=== PATIENT | male | born 1995 | race African-American/Black ===

== ENCOUNTER 2019-09-14 16:17 | Emergency (ER) | payer MEDICAID ==
[~2019-09-14] VITALS: Ht 175.3 cm; Wt 64.0 kg
[2019-09-14] MEDS ORDERED: DARU1TAB PO (16:44)
[2019-09-14] MEDS ORDERED: [UNRECOGNIZED DRUG - OTHER] (16:44)
[2019-09-14 18:00] LABS: CLARITY URINE CLEAR (CLEAR); COLOR URINE YELLOW (YELLOW); KETONES URINE NEGATIVE (NEGATIVE); LEUKOCYTE ESTERASE URINE NEGATIVE (NEGATIVE); NITRITE URINE NEGATIVE (NEGATIVE); OCCULT BLOOD URINE NEGATIVE (NEGATIVE); PROTEIN URINE NEGATIVE (NEGATIVE); UROBILINOGEN URINE 0.2 E.U./dL (0.2-1.0)
[2019-09-14 18:11] LABS: *AMPHETAMINES SCREEN URINE PRESUMTIVE POSITIVE (NEGATIVE); *BARBITURATES SCREEN URINE NEGATIVE (NEGATIVE); *BENZODIAZEPINES SCREEN URINE NEGATIVE (NEGATIVE); *COCAINE SCREEN URINE NEGATIVE (NEGATIVE); METHADONE URINE SCREEN NEGATIVE (NEGATIVE); OPIATES URINE SCREEN NEGATIVE (NEGATIVE)
[2019-09-14 18:12] LABS: CANNABINOID URINE SCREEN NEGATIVE (NEGATIVE); PHENCYCLIDINE URINE SCREEN NEGATIVE (NEGATIVE)
[2019-09-14 18:15] LABS: BASOPHILS % 0.7 % (0.0-2.0); EOSINOPHILS % 2.3 % (0.0-5.0); HEMATOCRIT. 34.2 % (42.0-52.0); HEMOGLOBIN. 11.9 g/dL (14.0-18.0); LYMPHOCYTES % 24.7 % (20.0-50.0); MEAN CORPUSCULAR HEMOGLOBIN 31.7 pg (28.0-32.0); MEAN CORPUSCULAR VOLUME 91.2 fL (80.0-94.0); MEAN PLATELET VOLUME 8.2 fl (7.4-10.4); NEUTROPHILS % 65.3 % (40.0-76.0); PLATELET 346 x1000/uL (130-400); RED BLOOD CELL COUNT 3.75 mill/uL (4.7-6.1)
[2019-09-14 18:26] LABS: CHLORIDE 106 mEq/L (98-107)
[2019-09-14 18:30] LABS: ETHANOL BLOOD < 10 mg/dL
[2019-09-14] MEDS: LORAZEPAM 1MG TABLET PO NR ×2 (20:00→22:20)
[2019-09-15] MEDS ORDERED: DIPHENHYDRAMINE 50MG/ML VIAL IM STA (08:33)
[2019-09-15] MEDS ORDERED: LORAZEPAM 2MG/ML CPJ IM STA (08:33)
[2019-09-15] MEDS ORDERED: OLANZAPINE 10 MG/VIAL IM ONE (08:45)
[2019-09-15] MEDS ORDERED: QUETIAPINE FUMARATE 50MG TABLET PO SCH (13:00)
[2019-09-15 17:57] VITALS: BP 95/42
[2019-09-15] MEDS ORDERED: LITHIUM CARBONATE 150 MG CAPSULE PO SCH (21:00)
[2019-09-16] MEDS ORDERED: SERTRALINE HCL 50MG TABLET PO SCH (09:00)
== END 2019-09-15 18:11 ==
LOC: ER 16:17
DX: R45.851 Suicidal ideations (principal); F15.10 Other stimulant abuse, uncomplicated; D64.9 Anemia, unspecified; F17.200 Nicotine dependence, unspecified, uncomplicated; Z98.890 Other specified postprocedural states
CPT/HCPCS: 36415; 80053; 80305; 80320; 81003; 85025; 99285; Z7610; G0480